=== PATIENT | male | born 1935 | race Caucasian/White ===

== ENCOUNTER 2016-12-04 13:40 | Inpatient (IN) | payer OTHER, BC ==
[~2016-12-04] VITALS: Ht 190.5 cm; Wt 83.9 kg
[2016-12-04 14:16] LABS: HEMATOCRIT 41.2 % (38.0-50.0); MCH 30.1 PG (29.0-34.0); MCHC 34.7 G/DL (30.0-36.0); MCV 86.7 FL (86-99); MEAN PLAT.VOLUME 9.5 uM^3 (9.0-12.4); PLATELET COUNT 244 K/uL (156-360); RBC DIS.WIDTH-CV 11.6 % (11.8-14.6); RBC DIS.WIDTH-SD 37.2 % (39-53); RED BLOOD COUNT 4.75 M/uL (4.00-5.50); WHITE BLOOD COUNT 10.8 K/uL (4.1-10.2)
[2016-12-04 14:28] LABS: CHLORIDE 98 mEq/L (99-109); POTASSIUM 4.4 mEq/L (3.7-5.4); SODIUM 136 mEq/L (136-147)
[2016-12-04 14:30] LABS: GLUCOSE 141 mg/dL (70-99)
[2016-12-04 14:31] LABS: ANION GAP 15 MEQ/L (2-14)
[2016-12-04 14:34] LABS: GFR ESTIMATE (CALCULATED) 29 mL/min/
[2016-12-04 14:35] LABS: UREA NITROGEN (BUN) 55 mg/dL (9-23)
[2016-12-04 14:52] LABS: TROP-I INTERPRETATION NEGATIVE; TROPONIN-I < 0.01 ng/mL (0.0-0.30)
[2016-12-04 15:35] LABS: ADD MIUA? YES; BILIRUBIN NEGATIVE; BLOOD NEGATIVE; COLOR YELLOW ((YELLOW)); GLUCOSE (STRIP) NEGATIVE; KETONES 5; LEUKOCYTES SMALL; NITRITE NEGATIVE; PROTEIN (STRIP) NEGATIVE; SPECIFIC GRAVITY 1.013 (1.000-1.030)
[2016-12-04 15:41] LABS: BACTERIA RARE /HPF; EPITHELIAL CELLS NONE SEEN /HPF; MUCUS TRACE /LPF; RED BLOOD CELLS 0-5 /HPF (0-5); UCUL ADDED? YES
[2016-12-04] MEDS ORDERED: PRAVACHOL80 MG PO (15:59)
[2016-12-04] MEDS ORDERED: ACCUPRIL40 MG PO (15:59)
[2016-12-04] MEDS ORDERED: AMARYL1 MG PO (15:59)
[2016-12-04] MEDS ORDERED: AMOXICILLIN875 MG PO (15:59)
[2016-12-04] MEDS ORDERED: ASPIR 8181 M1 PO (15:59)
[2016-12-04] MEDS ORDERED: INDAPAMIDE1.25 MG PO (15:59)
[2016-12-04 17:18] LABS: URIC ACID 13.2 mg/dL (3.1-9.2)
[2016-12-04 18:01] VITALS: BP 164/74
[2016-12-04 20:05] VITALS: BP 138/63
[2016-12-05] VITALS: BP 137/65
[2016-12-05 04:04] VITALS: BP 152/69
[2016-12-05 06:08] LABS: HEMATOCRIT 38.5 % (38.0-50.0); MCH 29.8 PG (29.0-34.0); MCV 87.7 FL (86-99); MEAN PLAT.VOLUME 10.3 uM^3 (9.0-12.4); PLATELET COUNT 229 K/uL (156-360); RBC DIS.WIDTH-CV 11.6 % (11.8-14.6); RBC DIS.WIDTH-SD 37.4 % (39-53); RED BLOOD COUNT 4.39 M/uL (4.00-5.50); WHITE BLOOD COUNT 8.3 K/uL (4.1-10.2)
[2016-12-05 06:39] LABS: ALKALINE PHOSPHATASE 45 IU/L (3-129); ANION GAP 9 MEQ/L (2-14); CHLORIDE 103 MEQ/L (99-109); GFR ESTIMATE (CALCULATED) 39 mL/min/; POTASSIUM 4.1 MEQ/L (3.7-5.4); SAMPLE HEMOLYSIS CHECK 0; SAMPLE ICTERIC CHECK 0; SAMPLE LIPEMIA CHECK 0; SODIUM 137 MEQ/L (136-147); TOTAL BILIRUBIN 0.8 MG/DL (0.0-1.0); UREA NITROGEN (BUN) 42 mg/dL (9-23)
[2016-12-05 06:40] LABS: GLUCOSE 95 mg/dL (70-99)
[2016-12-05 07:25] VITALS: BP 154/86
[2016-12-05 11:10] VITALS: BP 142/67
[2016-12-05 15:07] VITALS: BP 154/66
[2016-12-05 19:46] VITALS: BP 165/74
[2016-12-06 00:21] VITALS: BP 152/80
[2016-12-06 03:58] VITALS: BP 143/68
[2016-12-06 08:28] LABS: POINT-OF-CARE METER ID UU14174225
[2016-12-06 08:33] VITALS: BP 157/69
[2016-12-06 09:04] LABS: ANION GAP 8 MEQ/L (2-14); CHLORIDE 107 MEQ/L (99-109); GFR ESTIMATE (CALCULATED) 56 mL/min/; GLUCOSE 123 mg/dL (70-99); POTASSIUM 4.6 MEQ/L (3.7-5.4); SAMPLE HEMOLYSIS CHECK 0; SAMPLE ICTERIC CHECK 0; SAMPLE LIPEMIA CHECK 0; SODIUM 139 MEQ/L (136-147); UREA NITROGEN (BUN) 22 mg/dL (9-23)
[2016-12-06] MEDS ORDERED: ALLOPURINOL100 MG PO (09:51)
== END 2016-12-06 12:00 | disposition home or self-care (01) | DRG 683 ==
LOC: EME 13:40 → EDOF 16:08 → ENRESERV 16:09 → 5SOUTH 17:51
PROVIDERS: Emergency Medicine; Internal Medicine; Physician Assistant
DX: N17.9 Acute kidney failure, unspecified (principal); E86.0 Dehydration; E87.2 Acidosis; E11.22 Type 2 diabetes mellitus with diabetic chronic kidney disease; E11.42 Type 2 diabetes mellitus with diabetic polyneuropathy; E78.5 Hyperlipidemia, unspecified; I12.9 Hypertensive chronic kidney disease with stage 1 through stage 4 chronic kidney disease, or unspecified chronic kidney disease; N18.3 Chronic kidney disease, stage 3 (moderate); M10.9 Gout, unspecified; R06.02 Shortness of breath; M79.672 Pain in left foot; R05 Cough; J02.9 Acute pharyngitis, unspecified; Z79.84 Long term (current) use of oral hypoglycemic drugs; Z86.73 Personal history of transient ischemic attack (TIA), and cerebral infarction without residual deficits; Z90.49 Acquired absence of other specified parts of digestive tract
CPT/HCPCS: 71020; 80048; 80053; 81003; 82948; 83605; 84484; 84550; 85027; 87040; 87086; 93005; 99281; 99285; J1644; J1815; J7030; J7040

== ENCOUNTER 2016-12-14 17:21 | Inpatient (IN) | payer OTHER, BC ==
[~2016-12-14] VITALS: Ht 190.5 cm; Wt 83.0 kg
[~2016-12-14 17:21] MED LIST: ACCUPRIL40 MG PO; ALLOPURINOL100 MG PO; AMARYL1 MG PO; AMOXICILLIN875 MG PO; ASPIR 8181 M1 PO; INDAPAMIDE1.25 MG PO; PRAVACHOL80 MG PO
[2016-12-14 19:21] LABS: ADD MIUA? YES; BILIRUBIN NEGATIVE; BLOOD NEGATIVE; COLOR YELLOW ((YELLOW)); GLUCOSE (STRIP) NEGATIVE; KETONES 5; LEUKOCYTES SMALL; NITRITE NEGATIVE; PROTEIN (STRIP) 30; SPECIFIC GRAVITY 1.014 (1.000-1.030)
[2016-12-14 19:24] LABS: CHLORIDE 90 mEq/L (99-109); HEMATOCRIT 37.7 % (38.0-50.0); MCH 29.7 PG (29.0-34.0); MCHC 35.8 G/DL (30.0-36.0); PLATELET COUNT 290 K/uL (156-360); POTASSIUM 3.3 mEq/L (3.7-5.4); RBC DIS.WIDTH-CV 11.3 % (11.8-14.6); RBC DIS.WIDTH-SD 34.3 % (39-53); RED BLOOD COUNT 4.54 M/uL (4.00-5.50); WHITE BLOOD COUNT 9.4 K/uL (4.1-10.2)
[2016-12-14 19:26] LABS: GLUCOSE 101 mg/dL (70-99)
[2016-12-14 19:27] LABS: ANION GAP 21 MEQ/L (2-14); SODIUM 127 mEq/L (136-147)
[2016-12-14 19:30] LABS: GFR ESTIMATE (CALCULATED) 26 mL/min/
[2016-12-14 19:39] LABS: UREA NITROGEN (BUN) 33 mg/dL (9-23)
[2016-12-14 19:55] LABS: BACTERIA 1+ /HPF; CASTS PRESENT /LPF; CRYSTALS NONE SEEN; EPITHELIAL CELLS RARE /HPF; FINE GRANULAR CASTS TNTC /LPF; HYALINE CASTS 0-5 /LPF; MUCUS NONE SEEN /LPF; RED BLOOD CELLS 0-5 /HPF (0-5); WHITE BLOOD CELLS 0-5 /HPF (0-5)
[2016-12-14 22:51] LABS: EOSINOPHIL (%) 0.7 % (0-5); EOSINOPHIL COUNT 0.1 K/uL (0-0.3); IMMATURE GRANULOCYTE (%) 0.4 % (0.0-0.7); MONOCYTE (%) 11.6 % (3-12); MONOCYTE COUNT 1.1 K/uL (0-0.8); NEUTROPHIL (%) 64.9 % (45-76)
[2016-12-14 22:56] LABS: TOTAL BILIRUBIN 1.4 mg/dL (0.0-1.0)
[2016-12-14 22:57] LABS: ALKALINE PHOSPHATASE 65 IU/L (3-129)
[2016-12-14 22:59] LABS: DIRECT BILIRUBIN 0.6 mg/dL (0.0-0.3)
[2016-12-14 23:13] LABS: INTER. NORMALIZED RATIO 1.1; PROTHROMBIN TIME 11.9 SEC (10.2-12.9)
[2016-12-15] VITALS (7 sets, daily range): BP systolic 122–155; BP diastolic 57–72
[2016-12-15 01:23] LABS: POINT-OF-CARE METER ID UU14174225
[2016-12-15 05:30] LABS: POINT-OF-CARE METER ID UU14188625
[2016-12-15 12:00] LABS: HEMATOCRIT 33.8 % (38.0-50.0); MCH 31.5 PG (29.0-34.0); MCHC 36.4 G/DL (30.0-36.0); MCV 86.7 FL (86-99); MEAN PLAT.VOLUME 10.2 uM^3 (9.0-12.4); PLATELET COUNT 239 K/uL (156-360); RBC DIS.WIDTH-CV 11.9 % (11.8-14.6); WHITE BLOOD COUNT 6.4 K/uL (4.1-10.2)
[2016-12-15 12:30] LABS: ANION GAP 10 MEQ/L (2-14); CHLORIDE 101 MEQ/L (99-109); GLUCOSE 99 mg/dL (70-99); SAMPLE HEMOLYSIS CHECK 0; SAMPLE ICTERIC CHECK 0; SAMPLE LIPEMIA CHECK 0; UREA NITROGEN (BUN) 29 mg/dL (9-23)
[2016-12-15 12:35] LABS: GFR ESTIMATE (CALCULATED) 41 mL/min/; POTASSIUM 5.1 MEQ/L (3.7-5.4); SODIUM 134 MEQ/L (136-147)
[2016-12-16 05:53] LABS: EOSINOPHIL (%) 2.9 % (0-5); EOSINOPHIL COUNT 0.2 K/uL (0-0.3); HEMATOCRIT 33.7 % (38.0-50.0); IMMATURE GRANULOCYTE (%) 0.3 % (0.0-0.7); INSTRUMENT ABS NEUTROPHIL CT 3.5 K/uL; LYMPHOCYTE COUNT 1.7 K/uL (1.0-2.8); MCH 29.3 PG (29.0-34.0); MCHC 33.8 G/DL (30.0-36.0); MCV 86.6 FL (86-99); MONOCYTE COUNT 0.7 K/uL (0-0.8); NEUTROPHIL (%) 56.3 % (45-76); NEUTROPHIL COUNT 3.5 K/uL (1.8-6.4); PLATELET COUNT 203 K/uL (156-360); RBC DIS.WIDTH-CV 11.9 % (11.8-14.6); RBC DIS.WIDTH-SD 37.9 % (39-53); RED BLOOD COUNT 3.89 M/uL (4.00-5.50); WHITE BLOOD COUNT 6.2 K/uL (4.1-10.2)
[2016-12-16 06:26] LABS: ANION GAP 10 MEQ/L (2-14); CHLORIDE 104 MEQ/L (99-109); GFR ESTIMATE (CALCULATED) 56 mL/min/; GLUCOSE 79 mg/dL (70-99); MAGNESIUM 1.8 mg/dl (1.3-2.7); POTASSIUM 4.2 MEQ/L (3.7-5.4); SAMPLE HEMOLYSIS CHECK 0; SAMPLE ICTERIC CHECK 0; SAMPLE LIPEMIA CHECK 0; SODIUM 135 MEQ/L (136-147); UREA NITROGEN (BUN) 24 mg/dL (9-23)
[2016-12-16 07:59] VITALS: BP 134/65
[2016-12-16 11:33] VITALS: BP 156/68
[2016-12-16 11:51] LABS: POINT-OF-CARE METER ID UU14174225
[2016-12-16 15:13] VITALS: BP 168/72
[2016-12-16 18:15] LABS: POINT-OF-CARE METER ID UU14174225
[2016-12-16 20:09] VITALS: BP 146/66
[2016-12-16 23:03] VITALS: BP 139/61
[2016-12-17 04:12] VITALS: BP 141/68
[2016-12-17 07:11] LABS: POINT-OF-CARE METER ID UU13113717
[2016-12-17 08:01] VITALS: BP 152/70
[2016-12-17 08:45] LABS: HEMATOCRIT 35.8 % (38.0-50.0); MCH 29.7 PG (29.0-34.0); MCHC 34.1 G/DL (30.0-36.0); MCV 87.1 FL (86-99); MEAN PLAT.VOLUME 9.6 uM^3 (9.0-12.4); PLATELET COUNT 223 K/uL (156-360); RBC DIS.WIDTH-CV 11.9 % (11.8-14.6); RBC DIS.WIDTH-SD 38.1 % (39-53); RED BLOOD COUNT 4.11 M/uL (4.00-5.50); WHITE BLOOD COUNT 6.2 K/uL (4.1-10.2)
[2016-12-17 09:11] LABS: ANION GAP 10 MEQ/L (2-14); CHLORIDE 101 MEQ/L (99-109); GFR ESTIMATE (CALCULATED) 56 mL/min/; POTASSIUM 4.2 MEQ/L (3.7-5.4); SAMPLE HEMOLYSIS CHECK 0; SAMPLE ICTERIC CHECK 0; SAMPLE LIPEMIA CHECK 0; SODIUM 133 MEQ/L (136-147); UREA NITROGEN (BUN) 17 mg/dL (9-23)
[2016-12-17 09:15] LABS: GLUCOSE 110 mg/dL (70-99)
[2016-12-17 12:14] VITALS: BP 143/80
[2016-12-17 17:26] LABS: POINT-OF-CARE METER ID UU13113717
[2016-12-17 17:28] VITALS: BP 152/91
[2016-12-17 19:42] VITALS: BP 162/72
[2016-12-17 23:57] VITALS: BP 129/52
[2016-12-18 03:09] VITALS: BP 133/64
[2016-12-18 06:05] LABS: EOSINOPHIL (%) 4.2 % (0-5); EOSINOPHIL COUNT 0.3 K/uL (0-0.3); HEMATOCRIT 34.5 % (38.0-50.0); IMMATURE GRANULOCYTE (%) 0.3 % (0.0-0.7); INSTRUMENT ABS NEUTROPHIL CT 3.4 K/uL; MCH 29.6 PG (29.0-34.0); MCHC 34.2 G/DL (30.0-36.0); MCV 86.7 FL (86-99); MEAN PLAT.VOLUME 9.8 uM^3 (9.0-12.4); MONOCYTE (%) 11.8 % (3-12); MONOCYTE COUNT 0.8 K/uL (0-0.8); NEUTROPHIL (%) 52.6 % (45-76); NEUTROPHIL COUNT 3.4 K/uL (1.8-6.4); PLATELET COUNT 192 K/uL (156-360); RBC DIS.WIDTH-CV 11.8 % (11.8-14.6); RBC DIS.WIDTH-SD 37.7 % (39-53); RED BLOOD COUNT 3.98 M/uL (4.00-5.50); WHITE BLOOD COUNT 6.4 K/uL (4.1-10.2)
[2016-12-18 06:31] LABS: ALKALINE PHOSPHATASE 45 IU/L (3-129); ANION GAP 6 MEQ/L (2-14); CHLORIDE 101 MEQ/L (99-109); GFR ESTIMATE (CALCULATED) 56 mL/min/; GLUCOSE 110 mg/dL (70-99); POTASSIUM 4.1 MEQ/L (3.7-5.4); SAMPLE HEMOLYSIS CHECK 0; SAMPLE ICTERIC CHECK 0; SAMPLE LIPEMIA CHECK 0; SODIUM 133 MEQ/L (136-147); TOTAL BILIRUBIN 0.9 MG/DL (0.0-1.0); UREA NITROGEN (BUN) 16 mg/dL (9-23)
[2016-12-18 08:40] LABS: POINT-OF-CARE METER ID UU14174225
[2016-12-18 08:49] VITALS: BP 93/58
[2016-12-18 11:20] VITALS: BP 111/64
[2016-12-18 11:47] LABS: POINT-OF-CARE METER ID UU14174225
== END 2016-12-18 13:42 | disposition home or self-care (01) | DRG 683 ==
LOC: EME 17:21 → EDOF 22:36 → 5SOUTH 22:36 → ENRESERV 22:39 → 5SOUTH 12-15 00:37
PROVIDERS: Emergency Medicine; Hospitalist; Internal Medicine; Internal Medicine Nephrology; Physician Assistant Medical
DX: N17.9 Acute kidney failure, unspecified (principal); E86.0 Dehydration; T39.315A Adverse effect of propionic acid derivatives, initial encounter; E87.1 Hypo-osmolality and hyponatremia; E87.2 Acidosis; E87.8 Other disorders of electrolyte and fluid balance, not elsewhere classified; R13.12 Dysphagia, oropharyngeal phase; E11.22 Type 2 diabetes mellitus with diabetic chronic kidney disease; E11.42 Type 2 diabetes mellitus with diabetic polyneuropathy; R17 Unspecified jaundice; K22.4 Dyskinesia of esophagus; R06.6 Hiccough; E87.6 Hypokalemia; I12.9 Hypertensive chronic kidney disease with stage 1 through stage 4 chronic kidney disease, or unspecified chronic kidney disease; N18.3 Chronic kidney disease, stage 3 (moderate); E78.5 Hyperlipidemia, unspecified; R33.9 Retention of urine, unspecified; K29.70 Gastritis, unspecified, without bleeding; Z79.82 Long term (current) use of aspirin; Z79.84 Long term (current) use of oral hypoglycemic drugs; Z86.73 Personal history of transient ischemic attack (TIA), and cerebral infarction without residual deficits; Z87.442 Personal history of urinary calculi; Z82.3 Family history of stroke
CPT/HCPCS: 70450; 70490; 70551; 71020; 71250; 74176; 74220; 74230; 76770; 80048; 80053; 80076; 81003; 82436; 82575; 82948; 83605; 83735; 83935; 84100; 84133; 84238 90; 84300; 85025; 85027; 85610; 88305; 88342 TC; 92610 GN; 92611 GN; 93005; 99202; 99281; 99284; J1815; J3230; J3480; J7030; J7042; J7050

== ENCOUNTER 2017-09-15 15:43 | Emergency (ER) | payer OTHER, BC ==
[~2017-09-15] VITALS: Ht 190.5 cm; Wt 81.0 kg
[2017-09-15 16:56] LABS: BASOPHIL (%) 0.3 % (0-1); EOSINOPHIL (%) 0.3 % (0-5); HEMATOCRIT 34.5 % (38.0-50.0); HEMOGLOBIN 12.5 G/DL (12.5-16.6); IMMATURE GRANULOCYTE (%) 0.3 % (0.0-0.7); LYMPHOCYTE (%) 14.4 % (15-42); LYMPHOCYTE COUNT 0.9 K/uL (1.0-2.8); MCH 32.3 PG (29.0-34.0); MCHC 36.2 G/DL (30.0-36.0); MCV 89.1 FL (86-99); MONOCYTE (%) 12.7 % (3-12); MONOCYTE COUNT 0.8 K/uL (0-0.8); NEUTROPHIL COUNT 4.6 K/uL (1.8-6.4); PLATELET COUNT 153 K/uL (156-360); RBC DIS.WIDTH-CV 11.9 % (11.8-14.6); RBC DIS.WIDTH-SD 38.6 % (39-53); RED BLOOD COUNT 3.87 M/uL (4.00-5.50); WHITE BLOOD COUNT 6.5 K/uL (4.1-10.2)
[2017-09-15 17:04] LABS: ALBUMIN 3.8 g/dL (3.2-4.8); CHLORIDE 98 mEq/L (99-109); POTASSIUM 4.5 mEq/L (3.7-5.4); SODIUM 133 mEq/L (136-147)
[2017-09-15 17:06] LABS: GLUCOSE 151 mg/dL (70-99); TOTAL PROTEIN 6.6 g/dL (6.4-8.3)
[2017-09-15 17:08] LABS: TOTAL BILIRUBIN 0.8 mg/dL (0.0-1.0)
[2017-09-15 17:10] LABS: APPEARANCE CLEAR ((CLEAR)); BILIRUBIN NEGATIVE; BLOOD SMALL; COLOR YELLOW ((YELLOW)); GLUCOSE (STRIP) NEGATIVE; KETONES NEGATIVE; LEUKOCYTES NEGATIVE; NITRITE NEGATIVE; PROTEIN (STRIP) NEGATIVE
[2017-09-15 17:10] LABS: ALKALINE PHOSPHATASE 61 IU/L (3-129); CREATININE 1.7 mg/dL (0.6-1.3); GFR ESTIMATE (CALCULATED) 41 mL/min/ (58.99-99999)
[2017-09-15 17:11] LABS: UREA NITROGEN (BUN) 28 mg/dL (9-23)
[2017-09-15 17:12] LABS: AST (GOT) 24 IU/L (2-34)
[2017-09-15 17:13] LABS: ALT (GPT) 15 IU/L (3-49); URIC ACID 5.6 mg/dL (3.1-9.2)
[2017-09-15 17:19] LABS: TROP-I INTERPRETATION NEGATIVE; TROPONIN-I < 0.01 ng/mL (0.0-0.30)
[2017-09-15 17:28] LABS: BACTERIA RARE /HPF; EPITHELIAL CELLS RARE /HPF; MUCUS NONE SEEN /LPF; RED BLOOD CELLS 0-5 /HPF (0-5); WHITE BLOOD CELLS 0-5 /HPF (0-5)
[2017-09-15] MEDS ORDERED: COLCHICINE0.6 M1 PO (19:55)
[2017-09-15 20:01] VITALS: BP 147/62
[2017-09-16 10:55] LABS: HEMOGLOBIN A1c (GLYCOHEMOGLOB) 6.3 % (Below 5.7)
== END 2017-09-15 20:02 | disposition home or self-care (01) ==
LOC: EME 15:43
PROVIDERS: Emergency Medicine
DX: M10.9 Gout, unspecified (principal); E86.0 Dehydration; N17.9 Acute kidney failure, unspecified; E11.22 Type 2 diabetes mellitus with diabetic chronic kidney disease; N18.9 Chronic kidney disease, unspecified; E78.5 Hyperlipidemia, unspecified; Z79.82 Long term (current) use of aspirin; Z90.49 Acquired absence of other specified parts of digestive tract
CPT/HCPCS: 71046; 80053; 81003; 83036; 83605; 84484; 84550; 85025; 87040; 87086; 93005; 99281; 99284; J7030